=== PATIENT | female | born 1990 | race Caucasian/White ===

== ENCOUNTER 2017-08-08 19:35 | Emergency (ER) | payer OTHER ==
[2017-08-08 20:16] VITALS: O2SAT 100
[2017-08-08] MEDS ORDERED: Sodium Chloride 0.9% 1,000 ML IV ONE ×2 (20:56→23:06)
[2017-08-08] MEDS ORDERED: Sodium Chloride 0.9% 1,000 ML ONE ×2 (21:02→23:21)
--- NOTE | 2017-08-08 21:03 | C.PDOC ---
History Of Present Illness Azul Kapaida, a 26 year old female presents to the Emergency Department complaining of nausea, vomiting and sore throat. Reports she is 6-8 weeks and vomited after drinking orange juice and her symptoms have worsened. Patient had visited [facility] on 08/05/17 and was given vitamins, but states, her heartburn has worsened. Patient has nausea, vomiting, and is coughing phlegm. Denies vaginal bleeds, diarrhea or constipation. Last menstrual period was on May 2007. Patient has and P: 0 PMD: Non CPH Provider Time Seen by Provider: 08/08/17 20:37 Chief Complaint (Nursing): GI Problem History Per: Patient History/Exam Limitations: no limitations Current Symptoms Are (Timing): Still Present Past Medical History Reviewed: Historical Data, Nursing Documentation, Vital Signs Vital Signs: Last Vital Signs Temp 98.7 F 08/08/17 23:54 Pulse 74 08/08/17 23:54 Resp 18 08/08/17 23:54 BP 116/60 08/08/17 23:54 Pulse Ox 100 08/08/17 23:54 - Medical History PMH: No Chronic Diseases Surgical History: No Surg Hx Family History: States: Unknown Family Hx - Social History Hx Alcohol Use: No Hx Substance Use: No - Immunization History Hx Tetanus Toxoid Vaccination: No Hx Influenza Vaccination: No Hx Pneumococcal Vaccination: No Review Of Systems Except As Marked, All Systems Reviewed And Found Negative. Constitutional: Negative for: Fever, Chills Respiratory: Positive for: Cough (phlegm) Gastrointestinal: Positive for: Nausea, Vomiting. Negative for: Diarrhea, Constipation Genitourinary: Negative for: Vaginal Bleeding Physical Exam - Physical Exam Appears: Well, Non-toxic, No Acute Distress Skin: Normal Color, Warm, Dry Head: Atraumatic, Normacephalic Neck: Normal, Normal ROM Cardiovascular: Rhythm Regular, No Murmur Respiratory: Normal Breath Sounds, No Decreased Breath Sounds, No Accessory Muscle Use Gastrointestinal/Abdominal: Normal Exam, Bowel Sounds, Soft, No Tenderness Back: Normal Inspection Extremity: Normal ROM, No Pedal Edema, No Deformity Neurological/Psych: Oriented x3 ED Course And Treatment - Laboratory Results Result Diagrams: 08/08/17 21:03 08/08/17 21:03 O2 Sat by Pulse Oximetry: 100 (RA) Pulse Ox Interpretation: Normal - CT Scan/US US Other Rad Studies (CT/US): Read By Radiologist, Radiology Report Reviewed CT/US Interpretation: EXAM: US First Trimester, Transabdominal. CLINICAL HISTORY: 26 years old, female; Signs and symptoms; Lmp or gestational age (in weeks): [id number];. Antepartum complications; Other: Cramp; ; Additional info: Cramping. TECHNIQUE: Real-time transabdominal obstetrical ultrasound of the maternal pelvis and a first trimester. with image documentation. COMPARISON: No relevant prior studies available. FINDINGS: Gestation: Single live intrauterine gestation. heart rate of 135 beats per minute. Pas[place]empo-rump. length of 0.8 cm, correlating with gestational age of 6 weeks 5 days. Uterus/cervix: No subchorionic hemorrhage. No cervical dilatation or effacement. Ovaries: Normal ovaries. No adnexal masses. Free fluid: Small free fluid within pelvis. IMPRESSION: 1. Single live intrauterine gestation. 2. Incidental/non-acute findings are described above. Medical Decision Making Medical Decision Making: Time: 20:56 Initial Plan: --CMP --Lipase --CBC --Pepcid 20mg --Normal Saline 1,000ml IV 1,000 mls/hr --Zofran 4mg IVP --Urinalysis --Reevaluation Case discussed with Dr. Gonzalez, patient's OB, who states he wanted patient to go to [facility] for care. Patient was given zofran here and potassium PO replacement. She is tolerating PO now, will discharge with zofran Rx and advised to follow up at [facility] as discussed previously with Dr. Gonzalez and to see him at this office tomorrow. Scribe Attestation: Documented by Ebonie Ambrocio, acting as a scribe for Gab Currie MD Provider Scribe Attestation: All medical record entries made by the Scribe were at my direction and personally dictated by me. I have reviewed the chart and agree that the record accurately reflects my personal performance of the history, physical exam, medical decision making, and the department course for this patient. I have also personally directed, reviewed, and agree with the discharge instructions and disposition. Disposition Discussed With : Milan Lazar Doctor Will See Patient In The: Office Counseled Patient/Family Regarding: Studies Performed, Diagnosis, Need For Followup, Rx Given - Disposition Disposition: HOME/ ROUTINE Disposition Time: 23:38 Condition: STABLE Additional Instructions: follow up with your doctor tomorrow. call to make an appointment take medications as prescribed return to hospital if symptoms worsens or progress Prescriptions: Famotidine [Pepcid] 20 mg PO BID #20 tab Ondansetron ODT [Zofran ODT] 4 mg PO TID PRN #12 odt PRN Reason: Nausea/Vomiting Instructions: Hyperemesis Gravidarum (ED) Forms: [employer] (Hebrew), General Discharge Instructions - Clinical Impression Clinical Impression: Hyperemesis
[2017-08-08 21:07] LABS: BASO % 0.4 % (0.0-2.0); EOS % 0.3 % (0.0-4.0); HEMOGLOBIN 12.1 g/dL (11.0-16.0); LYMPH # 1.9 K/uL (1.0-4.3); LYMPH % 19.8 % (20.0-40.0); MEAN CELL VOLUME 78.6 fL (81.0-99.0); MEAN CORPUSCULAR HEMOGLOBIN 26.3 pg (27.0-31.0); MEAN CORPUSCULAR HGB CONC 33.5 g/dL (33.0-37.0); MEAN PLATELET VOLUME 8.5 fL (7.2-11.7); MONO % 10.7 % (0.0-10.0); NEUT # 6.4 K/uL (1.8-7.0); NEUT % 68.8 % (50.0-75.0); NRBC % 0.1 % (0.0-2.0); RBC 4.61 Mil/uL (3.80-5.20); RED CELL DISTRIBUTION WIDTH 14.8 % (11.5-14.5); WHITE BLOOD COUNT 9.4 K/uL (4.8-10.8)
[2017-08-08 21:22] LABS: ALB/GLOB RATIO 1.1 (1.0-2.1); ALBUMIN 4.2 g/dL (3.5-5.0); ALT/SGPT 20 U/L (9-52); AST/SGOT 20 U/L (14-36); BLOOD UREA NITROGEN 3 mg/dL (7-17); CALCIUM 9.6 mg/dl (8.6-10.4); GFR AFRICAN-AMERICAN > 60; GFR NON-AFRICAN AMERICAN > 60; LIPASE 60 U/L (23-300)
[2017-08-08 21:25] LABS: SQUAMOUS EPITHIAL 1 /hpf (0-5); URINE BILIRUBIN NEGATIVE (NEGATIVE); URINE BLOOD NEGATIVE (NEGATIVE); URINE CLARITY Clear (Clear); URINE COLOR Yellow (YELLOW); URINE GLUCOSE (UA) NORMAL (Normal); URINE LEUKOCYTE ESTERASE NEG Leu/uL (Negative); URINE NITRATE NEGATIVE (NEGATIVE); URINE PROTEIN 1+ mg/dL (NEGATIVE); URINE UROBILINOGEN NORMAL mg/dL (0.2-1.0)
--- NOTE | 2017-08-08 22:47 | US ---
EXAM: US First Trimester, Transabdominal CLINICAL HISTORY: 26 years old, female; Signs and symptoms; Lmp or gestational age (in weeks): [id number]; Antepartum complications; Other: Cramp; ; Additional info: Cramping TECHNIQUE: Real-time transabdominal obstetrical ultrasound of the maternal pelvis and a first trimester with image documentation. COMPARISON: No relevant prior studies available. FINDINGS: Gestation: Single live intrauterine gestation. heart rate of 135 beats per minute. Worthing-rump length of 0.8 cm, correlating with gestational age of 6 weeks 5 days. Uterus/cervix: No subchorionic hemorrhage. No cervical dilatation or effacement. Ovaries: Normal ovaries. No adnexal masses. Free fluid: Small free fluid within pelvis. IMPRESSION: 1. Single live intrauterine gestation. 2. Incidental/non-acute findings are described above.
[2017-08-08] MEDS ORDERED: Potassium Chloride 20 mEq ER Tab PO STA (23:06)
[2017-08-08] MEDS ORDERED: Potassium Chloride 20 mEq ER Tab PO ONE (23:21)
[2017-08-08] MEDS ORDERED: Potassium Chloride 10 mEq ER Tab PO STA ×2 (23:40→23:41)
[2017-08-08] MEDS ORDERED: Potassium Chloride 10 mEq ER Tab PO ONE (23:42)
[2017-08-08 23:55] VITALS: BP 116/60; PULSE 74; RESP 18; TEMP 98.7
[2017-08-09] MEDS ORDERED: Potassium Chloride 10 mEq ER Tab PO SCH (08:00)
== END 2017-08-09 00:21 | disposition home or self-care (01) ==
LOC: C.ER 19:35
DX: O21.0 Mild hyperemesis gravidarum (principal); Z3A.11 11 weeks gestation of pregnancy
CPT/HCPCS: 76801; 80053; 81001; 83690; 84702; 85025; 96361; 96374; 96375; 99285; J2405; J7040

== ENCOUNTER 2017-08-29 16:31 | Emergency (ER) | payer OTHER ==
[2017-08-29] MEDS ORDERED: Sodium Chloride 0.9% 1,000 ML IV ONE (21:24)
[2017-08-29] MEDS ORDERED: Sodium Chloride 0.9% 1,000 ML ONE (21:34)
--- NOTE | 2017-08-29 21:59 | C.PDOC ---
History Of Present Illness 26 year old female currently 5 weeks presents to the ED for evaluation of flu like symptoms x2 days. Pt complains of vomiting and nasal congestion. She reports that she recently had a US for this which showed live intrauterine . Time Seen by Provider: 08/29/17 20:17 Chief Complaint (Nursing): Flu-like Symptoms History Per: Patient History/Exam Limitations: no limitations Onset/Duration Of Symptoms: Days Current Symptoms Are (Timing): Still Present Associated Symptoms: Nasal Congestion, Vomiting Past Medical History Reviewed: Historical Data, Nursing Documentation, Vital Signs Vital Signs: Last Vital Signs Temp 98.9 F 08/29/17 17:45 Pulse 91 H 08/29/17 17:45 Resp 18 08/29/17 17:45 BP 122/73 08/29/17 17:45 Pulse Ox 99 08/29/17 21:59 Family History: States: Unknown Family Hx - Social History Hx Alcohol Use: No Hx Substance Use: No - Immunization History Hx Tetanus Toxoid Vaccination: No Hx Influenza Vaccination: No Hx Pneumococcal Vaccination: No Review Of Systems Except As Marked, All Systems Reviewed And Found Negative. Constitutional: Negative for: Fever, Chills ENT: Positive for: Nose Congestion. Negative for: Ear Pain, Throat Pain Cardiovascular: Negative for: Chest Pain Respiratory: Negative for: Cough, Shortness of Breath Gastrointestinal: Positive for: Nausea, Vomiting. Negative for: Abdominal Pain , Diarrhea Genitourinary: Positive for: Other (). Negative for: Vaginal Bleeding Skin: Negative for: Rash Neurological: Negative for: Headache Physical Exam - Physical Exam Appears: Well, Non-toxic, No Acute Distress Skin: Normal Color, Warm, Dry Head: Atraumatic, Normacephalic Eye(s): bilateral: Normal Inspection, PERRL, EOMI Nose: Other (Congestion) Oral Mucosa: Moist Tongue: Normal Appearing Lips: Normal Appearing Teeth: Normal Dentition Throat: Normal Neck: Normal, Normal ROM, Supple Cardiovascular: Rhythm Regular (Rate Regular ) Respiratory: Normal Breath Sounds Gastrointestinal/Abdominal: Soft, No Tenderness, Other (nongravid) Back: Normal Inspection Pelvic: No Adnexal Tenderness Neurological/Psych: Oriented x3, Normal Speech ED Course And Treatment O2 Sat by Pulse Oximetry: 99 Progress Note: IVF, zofran, tylenol, tamiflu Medical Decision Making Medical Decision Making: early with IUP (US prior to eval) ? early flu (minimal symptoms) n/v x 2 days may be early hyperemesis gravidarum. Will give IV hydration, acetaminophen 325mg PO, Zofran PO, and Tamiflu PO. Will re-evaluate and likely discharge home. Disposition Doctor Will See Patient In The: Office Counseled Patient/Family Regarding: Studies Performed, Diagnosis - Disposition Disposition: HOME/ ROUTINE Disposition Time: 21:59 Condition: GOOD Additional Instructions: pepcid 20 mg @ night to decrease gastritis Zofran 4 mg ODT (for nausea/vomiting) 1 tab every 6-8 hours as needed Tamiflu 75 mg twice a day for 5 days- anti-viral medication against Influenza Prescriptions: Famotidine [Pepcid] 20 mg PO HS #20 tab Ondansetron ODT [Zofran ODT] 4 mg PO Q6H PRN #6 odt PRN Reason: Nausea/Vomiting Oseltamivir [Tamiflu] 75 mg PO BID #9 cap Instructions: Flu, Adult (DC), Nausea and Vomiting of Forms: [employer] (Tajik) - Clinical Impression Clinical Impression: Influenza-like illness, Hyperemesis - Scribe Statement The provider has reviewed the documentation as recorded by the Scribe The provider has reviewed the documentation as recorded by the Scribe (Jose Lazaro) Provider Attestation: All medical record entries made by the Scribe were at my direction and personally dictated by me. I have reviewed the chart and agree that the record accurately reflects my personal performance of the history, physical exam, medical decision making, and the department course for this patient. I have also personally directed, reviewed, and agree with the discharge instructions and disposition.
[2017-08-29 22:59] VITALS: BP 116/78; PULSE 77; RESP 20; TEMP 98.5; O2SAT 100
== END 2017-08-29 22:30 | disposition home or self-care (01) ==
LOC: C.ER 16:31
DX: O21.0 Mild hyperemesis gravidarum (principal); Z3A.00 Weeks of gestation of pregnancy not specified; J11.1 Influenza due to unidentified influenza virus with other respiratory manifestations
CPT/HCPCS: 96360; 99284; J7040